=== PATIENT | male | born 2000 | race Caucasian/White ===

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

== ENCOUNTER 2021-01-18 11:33 | Emergency (ER) | payer MEDICAID ==
[2021-01-18 11:49] VITALS: BP 128/73; PULSE 101
[2021-01-18 11:53] VITALS: O2SAT 99
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
== END 2021-01-18 12:10 | disposition home or self-care (01) ==
LOC: ED 11:33
DX: S51.811A Laceration without foreign body of right forearm, initial encounter (principal); W45.8XXA Other foreign body or object entering through skin, initial encounter
CPT/HCPCS: 12001; 99283

== ENCOUNTER 2021-05-02 19:37 | Emergency (ER) | payer MEDICAID ==
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
[2021-05-02] MEDS ORDERED: MOTRIN 600 MG PO ONE (20:54)
[2021-05-02] MEDS ORDERED: NORCO 5/325 MG PO ONE (20:54)
[2021-05-02] MEDS ORDERED: MOTRIN 600 MG ONE (20:54)
[2021-05-02 20:55] VITALS: O2SAT 99
[2021-05-02] MEDS ORDERED: NORCO 5/325 MG ONE (20:55)
[2021-05-02 20:59] VITALS: BP 133/72; PULSE 72
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
== END 2021-05-02 21:08 | disposition home or self-care (01) ==
LOC: ED 19:37
DX: S60.512A Abrasion of left hand, initial encounter (principal); S60.511A Abrasion of right hand, initial encounter; S50.312A Abrasion of left elbow, initial encounter; S20.419A Abrasion of unspecified back wall of thorax, initial encounter; S60.811A Abrasion of right wrist, initial encounter; S40.211A Abrasion of right shoulder, initial encounter; W18.30XA Fall on same level, unspecified, initial encounter; Y93.55 Activity, bike riding; Y92.488 Other paved roadways as the place of occurrence of the external cause; T14.8XXA Other injury of unspecified body region, initial encounter
CPT/HCPCS: 70450; 73030; 73060; 73080; 73110; 99284; A9270-GY

== ENCOUNTER 2024-05-23 16:28 | Emergency (ER) | payer OTHER ==
[2024-05-23 17:02] VITALS: BP 127/76; PULSE 68; RESP 18; TEMP 97.6; O2SAT 98
--- NOTE | 2024-05-23 17:04 | ERPHSYRPT ---
- History of Present Illness Time Seen by Provider: 05/23/24 17:02 Source: patient Exam Limitations: no limitations Physician History: This is a 23-year-old right-handed white male patient who was working with changing tires and accidentally cut the lateral, ulnar aspect of his right index finger. Patient tetanus status is up-to-date. Timing/Duration: today Quality: painful Severity: mild Location: hands (Second digit ulnar side, lateral aspect vertically oriented 2 cm laceration) Associated Symptoms: denies symptoms Allergies/Adverse Reactions: No Known Drug Allergies Allergy (Verified 05/23/24 16:53) Home Medications: No Reportable Medications [No Reported Medications] 05/23/24 [History] Hx Tetanus, Diphtheria Vaccination/Date Given: Yes Hx Influenza Vaccination/Date Given: No Hx Pneumococcal Vaccination/Date Given: No Travel Risk - International Travel Have you traveled outside of the country in past 3 weeks: No - Emerging Infectious Disease Are you exhibiting symptoms associated with any current EIDs: No - Review of Systems Constitutional: No Symptoms Eyes: No Symptoms Ears, Nose, & Throat: No Symptoms Respiratory: No Symptoms Cardiac: No Symptoms Abdominal/Gastrointestinal: No Symptoms Genitourinary Symptoms: No Symptoms Musculoskeletal: No Symptoms Skin: Other (Skin laceration right second digit) Neurological: No Symptoms Psychological: No Symptoms Endocrine: No Symptoms Hematologic/Lymphatic: No Symptoms Immunological/Allergic: No Symptoms All Other Systems: Reviewed and Negative - Past Medical History Pertinent Past Medical History: Yes Cardiac History: Other Other Medical History: HEART MURMUR AND TACHY WHEN CHILD WAS 4 - Past Surgical History Past Surgical History: No Other Surgical History: reconstructive sugery on face at age 6 Significant Family History: no pertinent family hx - Social History Smoking Status: Never smoker Exposure to second hand smoke: No Drug Use: none Patient Lives Alone: No - Nursing Vital Signs Nursing Vital Signs: Initial Vital Signs Temperature 97.6 F 05/23/24 16:59 Pulse Rate 68 05/23/24 16:59 Respiratory Rate 18 05/23/24 16:59 Blood Pressure 127/76 05/23/24 16:59 O2 Sat by Pulse Oximetry 98 05/23/24 16:59 Pain Scale Pain Intensity 0 - Physical Exam General Appearance: no apparent distress, alert Eye Exam: PERRL/EOMI, eyes nml inspection Ears, Nose, Throat Exam: normal ENT inspection, moist mucous membranes Neck Exam: normal inspection, non-tender, supple, full range of motion Respiratory Exam: airway intact, No chest tenderness, No respiratory distress Gastrointestinal/Abdomen Exam: No tenderness Rectal Exam: not done Back Exam: normal inspection, normal range of motion, No CVA tenderness Extremity Exam: normal range of motion, pelvis stable, lacerations (2 cm vertical oriented ulnar lateral aspect right second digit without active bleeding, without tendon injury and without foreign body) Neurologic Exam: alert, oriented x 3, cooperative, 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 No foreign body noted) Irrigated: Yes Hibiclens Prep: Yes Wound Repaired With: Steri-strips, Dermabond - Course Nursing assessment & vital signs reviewed: Yes - Progress Progress: improved, re-examined Progress Note: 05/23/24 17:16 My medical decision making and the assignment of low complexity to this patient's medical issue today is based on review of the patient's past medical history, review of the patient's medication list, review the patient drug allergy list, history present illness and physical findings on examination. The patient workup does not necessitate laboratory radiographic studies. Counseled pt/family regarding: diagnosis Medical Desision Making - Diagnostic Testing Diagnostic test were ordered, analyzed, and reviewed by me: No - Risk of complications Minimal Risk: Minimal risk of morbidity - Departure Departure Disposition: Home Clinical Impression: Laceration of index finger Condition: Stable Critical Care Time: No Additional Instructions: Keep the pressure dressing in place for 24 hours. In the evening of 05/24/2024, may remove the top dressing and leave the Steri-Strips in place until they fall off on their own. After the removal of the pressure dressing in 24 hours, may rinse the area with soapy water each day thereafter. Blot dry use a chair mechanic. As the Steri-Strips curl off, trim the edges. Do not pull the Steri-Strips off. Use Tylenol and ibuprofen for pain control.
== END 2024-05-23 18:14 | disposition home or self-care (01) ==
LOC: ED 16:28
DX: S61.210A Laceration without foreign body of right index finger without damage to nail, initial encounter (principal); W45.8XXA Other foreign body or object entering through skin, initial encounter; W26.9XXA Contact with unspecified sharp object(s), initial encounter
CPT/HCPCS: 12001; 99281

== ENCOUNTER 2025-08-31 20:50 | Emergency (ER) | payer OTHER ==
--- NOTE | 2025-08-31 20:53 | ERPHSYRPT ---
- History of Present Illness Time Seen by Provider: 08/31/25 20:52 Historian: patient Exam Limitations: no limitations Physician History: This is a 24-year-old white male patient who presents to the emergency department with his significant other by private vehicle and is a patient of Dr. Conley with a complaint of substernal, sharp, central, nonradiating chest pain with associated tingling in his left arm. At approximately 8:20 PM, prior to arrival, patient felt his heart racing. He then had the above-stated chest pain symptoms. Patient does have a history of anxiety, panic attacks and PTSD. He has no history of coronary artery disease. Timing/Duration: today Activities at Onset: none Quality: sharpness Location: substernal, central Chest Pain Radiation: no radiation Severity of Pain-Max: mild Severity of Pain-Current: none Modifying Factors: Improves With: nothing Associated Symptoms: denies symptoms Prior Chest Pain/Cardiac Workup: no prior chest pain, no prior cardiac workup Nitro Today/Relief: no nitro taken today Aspirin Treatment Today: no aspirin today Allergies/Adverse Reactions: No Known Drug Allergies Allergy (Verified 08/31/25 21:07) Home Medications: No Reportable Medications [No Reported Medications] 05/23/24 [History] Hx Tetanus, Diphtheria Vaccination/Date Given: Yes Hx Influenza Vaccination/Date Given: No Hx Pneumococcal Vaccination/Date Given: No Travel Risk - International Travel Have you traveled outside of the country in past 3 weeks: No - Emerging Infectious Disease Are you exhibiting symptoms associated with any current EIDs: No - Review of Systems Constitutional: No Symptoms Eyes: No Symptoms Ears, Nose, & Throat: No Symptoms Respiratory: No Symptoms Cardiac: Chest Pain Abdominal/Gastrointestinal: No Symptoms Genitourinary Symptoms: No Symptoms Musculoskeletal: No Symptoms Skin: No Symptoms Neurological: No Symptoms Psychological: No Symptoms Endocrine: No Symptoms Hematologic/Lymphatic: No Symptoms Immunological/Allergic: No Symptoms All Other Systems: Reviewed and Negative - Past Medical History Pertinent Past Medical History: Yes Cardiac History: Other Other Medical History: HEART MURMUR AND TACHY WHEN CHILD WAS 4 - Past Surgical History Past Surgical History: No Other Surgical History: reconstructive sugery on face at age 6 Significant Family History: no pertinent family hx - Social History Smoking Status: Never smoker Exposure to second hand smoke: No Drug Use: none Patient Lives Alone: No - Social Determinants of Health Will the patient participate in the screening: Yes Do you worry about a steady place to live?: No In the past 12 months,have you had to go without utilities?: No Transportation Issues: No Has anyone in your support network made you feel unsafe?: No Have you or anyone in your house had to go w/o enough food: No - Nursing Vital Signs Nursing Vital Signs: Initial Vital Signs Pulse Rate 91 H 08/31/25 20:50 Respiratory Rate 12 08/31/25 20:50 Blood Pressure 132/74 08/31/25 20:50 O2 Sat by Pulse Oximetry 99 08/31/25 20:50 Pain Scale Pain Intensity 4 - Physical Exam General Appearance: no apparent distress, alert, anxiety, thin Eye Exam: PERRL/EOMI, eyes nml inspection Ears, Nose, Throat Exam: normal ENT inspection, moist mucous membranes Neck Exam: normal inspection, non-tender, supple, full range of motion Respiratory Exam: normal breath sounds, lungs clear, airway intact, No chest tenderness (Prior chest pain resolved), No respiratory distress Cardiovascular Exam: regular rate/rhythm, normal heart sounds, normal peripheral pulses Gastrointestinal/Abdomen Exam: soft, normal bowel sounds, No tenderness Rectal Exam: not done Back Exam: normal inspection, normal range of motion, No CVA tenderness, No vertebral tenderness Extremity Exam: normal inspection, normal range of motion, pelvis stable Neurologic Exam: alert, oriented x 3, cooperative, 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 No acute ischemic changes on today's twelve-lead EKG.) Ordered Tests: Active Orders 24 hr Category Date Time Status EKG-ER Only STAT Care 08/31/25 21:10 Active CBC W DIFF Stat Lab 08/31/25 21:00 Completed CMP Stat Lab 08/31/25 21:00 Completed MAGNESIUM Stat Lab 08/31/25 21:00 Completed TROPONIN Q4H Lab 08/31/25 21:00 Completed TROPONIN Q4H Lab 09/01/25 01:15 Ordered TROPONIN Q4H Lab 09/01/25 05:15 Ordered Lab/Rad Data: Laboratory Result Diagrams 08/31/25 21:00 08/31/25 21:00 Laboratory Results 08/31/25 08/31/25 08/31/25 Range/Units 21:00 21:00 21:00 WBC 8.5 (4.23-9.07) x10^3/uL RBC 5.59 (4.63-6.08) x10^6/uL Hgb 15.4 (13.7-17.5) g/dL Hct 44.8 (40.1-51.0) % MCV 80.1 (79.0-92.2) fL MCH 27.5 (25.7-32.2) pg MCHC 34.4 (32.3-36.5) g/dL RDW 12.1 (11.6-14.4) % Plt Count 259 (163-337) x10^3/uL MPV 11.3 (9.4-12.4) fL Gran % 55.7 (34.0-67.9) % Immature Gran % (Auto) 0.2 (0.001-0.429) % Nucleat RBC Rel Count 0.0 (0.00-0.2) % Eos # (Auto) 0.10 (0.04-0.54) x10^3/uL Immature Gran # (Auto) 0.02 (0.001-0.031) x10^3u/L Absolute Lymphs (auto) 2.98 (1.32-3.57) x10^3/uL Absolute Monos (auto) 0.61 (0.30-0.82) x10^3/uL Absolute Nucleated RBC 0.00 (0.00-0.012) x10^3u/L Lymphocytes % 35.1 (21.8-53.1) % Monocytes % 7.2 (5.3-12.2) % Eosinophils % 1.2 (0.8-7.0) % Basophils % 0.6 (0.2-1.2) % Absolute Granulocytes 4.72 (1.78-5.38) x10^3/uL Basophils # 0.05 (0.01-0.08) x10^3/uL Sodium 136 (135-145) mmol/L Potassium 4.0 (3.5-5.1) mmol/L Chloride 102 (98-107) mmol/L Carbon Dioxide 28 (22-30) mmol/L Anion Gap 11.1 (5-15) MEQ/L BUN 18 (9-20) mg/dL Creatinine 1.26 H (0.66-1.25) mg/dL Estimated GFR 82.2 ML/MIN Glucose 99 (74-106) mg/dL Calcium 8.7 (8.4-10.2) mg/dL Magnesium 2.0 (1.6-2.3) mg/dL Total Bilirubin 0.30 (0.2-1.3) mg/dL AST 36 (17-59) U/L ALT 26 (0-50) U/L Alkaline Phosphatase 72 (38-126) U/L Troponin I < 0.012 (0.000-0.033) ng/mL Serum Total Protein 7.4 (6.3-8.2) g/dL Albumin 4.7 (3.5-5.0) g/dL - Progress Progress: improved, re-examined Air Movement: good Progress Note: 08/31/25 22:28 Medical decision making and the assignment of moderate complexity of this patient's medical issue today is based on review of the patient's past medical history, reviewed patient's medication list, reviewed patient drug allergy list, history present illness and physical findings on examination. The workup in this patient includes twelve-lead EKG, CBC, CMP, magnesium level, troponin level. I do not feel it necessary to perform a screening test for pulmonary embolus. I think his risks are low. I do not feel it necessary to perform a chest x-ray in this patient as I think his risks of any acute cardiopulmonary processes low. Differential diagnosis includes but is not limited to electrolyte abnormalities, panic attack/anxiety, muscle skeletal pain, arrhythmia, myocardial infarction. The patient's heart score is significantly less than 4. I interpreted the patient's laboratory data results. Based on laboratory data results, there are no acute, emergent medical issues Counseled pt/family regarding: lab results, diagnosis, need for follow-up Medical Desision Making - Independent Historian Additional History obtained from: Family - Diagnostic Testing Diagnostic test were ordered, analyzed, and reviewed by me: Yes - Risk of complications Low Risk: Low risk of morbidity from additional dx testing or treatment - Departure Departure Disposition: Home Clinical Impression: Nonspecific chest pain Condition: Stable Critical Care Time: No Referrals: DOCTOR,NO FAMILY [NON-STAFF PHY W/O PRIVILEGES, UNKNOWN] - Follow up/PCP as directed Additional Instructions: Call your primary care provider tomorrow, 09/01/2025, to make arrangements for follow-up appointment for further evaluation and management.
[2025-08-31 20:58] VITALS: TEMP 98
[2025-08-31 21:22] LABS: BASOPHIL % 0.6 % (0.2-1.2); Basophil (Absolute #) 0.05 x10^3/uL (0.01-0.08); Eosinophil (Absolute #) 0.10 x10^3/uL (0.04-0.54); Hematocrit 44.8 % (40.1-51.0); Hemoglobin 15.4 g/dL (13.7-17.5); IMMATURE GRAN # 0.02 x10^3u/L (0.001-0.031); IMMATURE GRAN % 0.2 % (0.001-0.429); Lymphocyte (Absolute #) 2.98 x10^3/uL (1.32-3.57); Mean Corpuscular Hemoglobin 27.5 pg (25.7-32.2); Mean Corpuscular Hgb Concent. 34.4 g/dL (32.3-36.5); Monocyte (Absolute #) 0.61 x10^3/uL (0.30-0.82); NUCLEATED RBC # 0.00 x10^3u/L (0.00-0.012); NUCLEATED RBC % 0.0 % (0.00-0.2); Platelet Count 259 x10^3/uL (163-337); Red Blood Count 5.59 x10^6/uL (4.63-6.08); White Blood Count 8.5 x10^3/uL (4.23-9.07)
[2025-08-31 21:57] LABS: Calcium 8.7 mg/dL (8.4-10.2); Carbon Dioxide 28.0 mmol/L (22-30); Creatinine 1 1.26 mg/dL (0.66-1.25); EST GLOMERULAR FILTRATION RATE 82.2 ML/MIN; Glucose 99.0 mg/dL (74-106); Potassium 4.0 mmol/L (3.5-5.1); SGOT/AST 36.0 U/L (17-59); SGPT/ALT 26.0 U/L (0-50); Total Protein 7.4 g/dL (6.3-8.2)
[2025-08-31 22:19] VITALS: PULSE 63
[2025-08-31 22:41] VITALS: BP 106/59; RESP 19; O2SAT 99
== END 2025-08-31 22:42 | disposition home or self-care (01) ==
LOC: ED 20:50
DX: R07.9 Chest pain, unspecified (principal); R20.2 Paresthesia of skin